=== PATIENT | male | born 1990 | race Two or more races ===

== ENCOUNTER 2019-01-28 19:46 | Emergency (ER) | payer SELFPAY ==
[~2019-01-28] VITALS: Ht 175.3 cm; Wt 104.3 kg
[2019-01-28 21:10] VITALS: BP 131/82
== END 2019-01-29 01:25 | disposition left against medical advice (07) ==
LOC: ER 19:57
DX: R21 Rash and other nonspecific skin eruption (principal); Z53.21 Procedure and treatment not carried out due to patient leaving prior to being seen by health care provider